=== PATIENT | male | born 2000 | race Hispanic/Latino ===

== ENCOUNTER 2024-01-08 23:22 | Emergency (ER) | payer SELFPAY ==
[2024-01-08 23:24] VITALS: BP 140/85; PULSE 86; RESP 16; TEMP 36.8; O2SAT 98; BMI 29.3
--- NOTE | 2024-01-08 23:29 | RAD_ITS ---
EXAM: XR RIGHT ANKLE COMPLETE, 3 OR MORE VIEWS CLINICAL INDICATION: injury TECHNIQUE: Frontal, lateral and oblique views of the right ankle. COMPARISON: No relevant prior studies available. FINDINGS: BONES/JOINTS: Unremarkable. No acute fracture. No subluxation. Normal alignment. Preservation of the joint space. No sclerotic or destructive changes observed. SOFT TISSUES: Lateral soft tissue swelling. No radiopaque foreign body. RAD/Ankle min 3 Views IMPRESSION: Lateral soft tissue swelling. Electronically Signed: Bandar Aranda MD at 0:10 EDT ,
--- NOTE | 2024-01-08 23:32 | ED.VIS.LOWEX ---
HPI History of Present Illness HPI Narrative: Right ankle injury when he twisted the ankle today playing soccer around 6 PM. No prior fracture or surgery. No other injuries. Patient is but his speaks good Estonian and Palauan and is uses the seismic interpreter. Chief Complaint: Lower Extremity Injury Informant: patient and spouse/S.O. Occured/Mechanism Mechanism/Context: Yes injury Onset/Context/Timing Onset: Today and Hours Context: Sudden Onset Timing: Continuous Quality of Pain: Dull and Aching Current Severity: Mild Maximum Severity: Mild Associated Symptoms Associated Symptoms: Negative for Parasthesia, Weakness or Loss of Funtion Narrative Narrative: 23-year-old male right ankle injury today. Prior similar symptoms: No Recent Illness/Hospitalization: No PFSH PFSH Medical History unable to obtain no medical history Allergy/AdvReac Type Severity Reaction Status Date / Time No Known Allergies Allergy Verified 01/08/24 23:25 Surgical History no surgical history no surgical history Social History Smoking Status: Unknown if ever smoked ROS ROS ED ROS Narrative Denies recent illness. Constitutional Constitutional ED: Denies fever(s) Eyes Eyes: Denies blurry vision ENT ENT ED: Denies ear pain Cardiovascular Cardiovascular: Denies chest pain Respiratory/Chest Respiratory/Chest: Denies cough Gastrointestinal Gastrointestinal: Denies abdominal pain Genitourinary Genitourinary ED: Denies dysuria Musculoskeletal Musculoskeletal: Denies arthralgias Integumentary Denies abscess Neurologic Neurologic: Denies headache(s) Psychiatric Psychiatric: Denies anxiety Endocrine Endocrinology: Denies polydipsia Allergic/Immunologic Allergic/Immunologic ED: Denies mouth swelling or tongue swelling EXAM Physical Exam Narrative Exam Narrative: Well-appearing 23-year-old male. Vital signs stable afebrile. H EENT exam unremarkable. Lungs clear to auscultation bilaterally. Heart regular rate rhythm rate about 85 no murmur. Chest wall ribs nontender. Abdomen soft nontender. Moving all 4 extremities. Neurovascular intact. 5 out of 5 operations technician strength. Left lower extremity unremarkable. Right hip and knee nontender. The right ankle is tender and swollen both medially and laterally. There is mild bruising. Achilles tendon is intact. No gross bony deformity. Able to wiggle his toes. Normal cap refill. Normal touch sensation. He is able to do dorsi and plantarflexion with some discomfort. DP pulses intact. Otherwise exam unremarkable. Const Vital Signs: 01/08/24 23:24 Temperature 98.2 F Temperature Source Oral Pulse Rate 86 Respiratory Rate 16 Blood Pressure 140/85 H Blood Pressure Mean 103 Pulse Ox 98 Oxygen Delivery Method Room Air Positive well nourished and well developed; Negative for cachectic or contractures General Appearance ED: well developed and NAD; Negative for cachectic or contractures Nutritional Appearance: Negative for cachectic HEENT Reports moist mucous membranes normocephalic and atraumatic Eyes PERRL Neck full ROM and supple Chest Wall inspection of chest normal and palpation of chest normal Resp normal respiratory effort, no retractions and clear to auscultation bilaterally Cardio regular rate, regular rhythm, S1 normal heart sound, S2 normal heart sound and no murmurs GI non-tender, non-distended and no masses Palpation: soft; Negative for tender, guarding or rebound tenderness present Back/Spine no CVA tenderness Extremity normal to inspection and full ROM Extremity Narrative: Except right ankle swelling both medially and laterally. Bruising. Achilles tendon intact. Normal DP pulse. He is able to do dorsi and plantarflexion with some tenderness. Able to wiggle his toes. Normal touch sensation. No gross bony deformity. General Extremety ED: Yes weight-bearing difficulty General Extremity: weight-bearing difficulty Neuro oriented x3 and CN's II-XII intact bilaterally Sensorium / Orientation: alert, oriented to person, oriented to place and oriented to time; Negative for orientation impaired, confused, lethargic or stuporous Motor Exam: strength 5/5 throughout Psych mental status grossly normal Skin no wounds Lesions: no lesions Rashes: no rashes MDM MDM MDM Narrative Medical decision making narrative: 23-year-old male was playing soccer today and injured his right ankle. X-ray being obtained. He already has taken ibuprofen at home. Repeat exam unchanged at 11:50 PM. I went over the x-ray with both the patient and his . He does not need crutches. He will be given an Aircast. Ice and elevate. Ibuprofen and Tylenol. Increase activity as tolerated. Follow-up as needed. Treated as an ankle sprain. History & Record Review Discussion w/independent historian: Patient and Significant other Radiography Diagnostic Testing: Right ankle x-ray, 3 views, interpreted by myself shows soft tissue swelling on both the medial and lateral malleolus. Discharge Plan Triage Chief Complaint: Lower Extremity Injury ED Provider: Galen Willams Dx/Rx/DC Orders Clinical Impression: Ankle sprain Instructions: ED Ankle Sprain (Adult) Primary Care Provider: Care Physician,No Primary Activity Restrictions/Additional Instructions: Ice and elevate to decrease pain and swelling. I would ice is a least 3-5 times a day for 30 minutes at a time. Ibuprofen for pain and swelling and Tylenol for pain. Crutches as needed. Start weightbearing slowly as tolerated. Aircast to walk. Increase activity as tolerated. Follow-up if not improving. I would not do any sports or heavy activity until the pain is much improved and the swelling is going away. Follow-up if not improving. Print Language: Palauan Disposition Disposition: Home, Self Care
== END 2024-01-09 00:05 | disposition home or self-care (01) ==
PROVIDERS: Emergency Provider Emergency Medicine; Visit Provider Emergency Medicine
DX: S93.401A Sprain of unspecified ligament of right ankle, initial encounter (principal); X50.1XXA Overexertion from prolonged static or awkward postures, initial encounter; Y93.66 Activity, soccer; Y92.322 Soccer field as the place of occurrence of the external cause
CPT/HCPCS: 73610; 99283